=== PATIENT | female | born 1965 | race Caucasian/White ===

== ENCOUNTER 2024-11-22 04:40 | Emergency (ER) | payer BC ==
[~2024-11-22] VITALS: Ht 165.1 cm; Wt 117.9 kg
[~2024-11-22 04:40] MED LIST: CYMBALTA60 MG PO; GABAPENTIN300 MG PO; GLUCOPHAGE850 MG PO; LEVEMIR100 U/ML SC; MULTIPLE VITAMI1 TAB PO; NATURE'S BLEND600 M2 PO; OMNICEF300 MG PO; PERCOCET 325 MG1 TA7 PO; PHENERGAN25 M1 PO; ROXICET 325 MG240 ML PO; VICTOZA6 MG/ML SC
[2024-11-22] MEDS ORDERED: MORPHINE Sulfate 2 MG/ML SYR IV ONE (05:05)
[2024-11-22] MEDS ORDERED: Dexamethasone Sodium Phospha 20 MG/5 ML VIAL IV ONE (05:05)
[2024-11-22] MEDS ORDERED: Albuterol Sulf/Ipratropium 3 ML VIAL NEB ONE (05:05)
[2024-11-22] MEDS ORDERED: Ondansetron Hydrochloride 4 MG/2 ML VIAL IV ONE (05:05)
[2024-11-22 05:40] LABS: ALKALINE PHOSPHATASE 113 U/L (46-116); BUN 10 mg/dl (9-23); CHLORIDE 102 mmol/L (98-107); POTASSIUM 4.5 mmol/L (3.4-5.1); SGPT/ALT 17 U/L (5-49); TOTAL PROTEIN 7.3 gm/dL (6.0-8.0)
[2024-11-22 05:51] LABS: BASO # 0.1 10*3/uL (0.0-0.1); BASO % 0.9 % (0.0-1.0); EOS # 0.5 10*3/uL (0.0-0.4); EOS % 5.1 % (1.0-4.0); MEAN CELL VOLUME 100.2 fl (81.0-99.0); MEAN CORPUSCULAR HGB 33.3 pg (27.0-31.0); MEAN CORPUSCULAR HGB CONC 33.2 g/dl (33.0-37.0); MEAN PLATELET VOLUME 10.8 fl (9.6-12.3); MONO # 0.6 10*3/uL (0.1-1.0); MONO % 7.1 % (3.0-9.0); NEUT # 5.6 10*3/uL (2.3-7.9); NEUT % 62.4 % (47.0-73.0); PLATELET COUNT AUTOMATED 233 10*3/uL (130-400); RED BLOOD COUNT 4.69 10*6/uL (4.10-5.10); RED CELL DISTRI WIDTH 12.2 % (0-14.5); WHITE BLOOD COUNT 8.9 10*3/uL (4.8-10.8)
[2024-11-22] MEDS ORDERED: PREDNISONE20 M1 PO (06:07)
[2024-11-22] MEDS ORDERED: TRAMADOL HCL50 MG PO (06:07)
[2024-11-22] MEDS ORDERED: METHOCARBAMOL750 M1 PO (06:07)
[2024-11-22] MEDS ORDERED: ALBUTEROL 8 GM INHALER INH ONE (06:10)
== END 2024-11-22 06:21 | disposition home or self-care (01) ==
LOC: ED 04:40
PROVIDERS: Emergency Medicine
DX: M94.0 Chondrocostal junction syndrome [Tietze] (principal); R05.9 Cough, unspecified; Z79.4 Long term (current) use of insulin; Z79.84 Long term (current) use of oral hypoglycemic drugs; Z79.899 Other long term (current) drug therapy; Z98.890 Other specified postprocedural states